=== PATIENT | male | born 1975 | race Asian ===

== ENCOUNTER 2016-11-14 20:44 | Emergency (ER) | payer OTHER ==
[2016-11-14 21:00] VITALS: O2SAT 96
--- NOTE | 2016-11-14 23:31 | EDPHY ---
H & P Time Seen by Provider: 11/14/16 22:03 HPI/ROS: CHIEF COMPLAINT: Head injury, scalp laceration HISTORY OF PRESENT ILLNESS: 40-year-old male presents to the emergency department by private vehicle complaining of diffuse headache after he sustained a head injury. The patient was playing indoor soccer and hit his head on the glass that surrounded field. He states that everything went white. He did not continue to play soccer. He complains of diffuse headache especially where he hit the back of his head. Denies neck or back pain. Denies chest pain or difficulty breathing. Denies abdominal trauma. He believes his tetanus shot is current. REVIEW OF SYSTEMS: Constitutional: No fever, no chills. Eyes: No double or blurry vision. ENT: No sore throat. Respiratory: No cough, no shortness of breath. Cardiac: No chest pain. Gastrointestinal: No abdominal pain, vomiting or diarrhea. Genitourinary: No dysuria. Musculoskeletal: No neck or back pain. Skin: scalp laceration Neurological: headache. Past Medical/Surgical History: Negative Social History: and lives in [place] Smoking Status: Never smoked Physical Exam: General Appearance: Alert, no distress. Mentating normally and answering questions appropriately. Eyes: Pupils equal and round. Extraocular motions are all intact. ENT: Mouth: Mucous membranes moist. No dental injury or malocclusion. Respiratory: No wheezing, rhonchi, or rales, lungs are clear to auscultation. Cardiovascular: Regular rate and rhythm. Gastrointestinal: Abdomen is soft and nontender, no masses, no rebound or guarding, bowel sounds normal. Neurological: Alert and oriented x 3, cranial nerves II through XII grossly intact Skin: 2 cm left posterior parietal scalp laceration. Diffusely tender. Large hematoma present. Warm and dry, no rashes. Musculoskeletal: Nontender to palpate along the cervical, thoracic or lumbar spine. Neck is supple. Extremities: Full range of motion and no peripheral edema. Psychiatric: Patient is oriented X 3, there is no agitation. Constitutional: Initial Vital Signs Temperature (C) 37.4 C 11/14/16 20:58 Heart Rate 93 11/14/16 20:58 Respiratory Rate 20 11/14/16 20:58 Blood Pressure 140/88 H 11/14/16 20:58 O2 Sat (%) 96 11/14/16 20:58 O2 Delivery Mode Room Air Allergies/Adverse Reactions: Penicillins Allergy (Unknown, Verified 11/14/16 20:58) Home Medications: Medication Instructions Recorded NK [No Known Home Meds] 11/14/16 Medical Decision Making - Diagnostics Imaging Results: Imaging Impressions Head CT 11/14/16 22:52 Impression: 1. No acute fracture or evidence of acute intracranial injury. 2. Left parietal scalp hematoma Findings discussed with Emergency Department physician medical laboratory assistant, BO MEJIA at 11/14/2016 23:22. Imaging: Discussed imaging studies w/ call center director Radiologist Procedures: Laceration repair. Verbal consent was obtained from the patient. The 2 cm laceration on the scalp was anesthetized using 1% lidocaine with epinephrine. The wound was irrigated with saline, draped and explored to its base with a gloved finger. There were no deep structures involved. The wound was repaired with 4 ramiro. The wound repair was simple. The procedure was performed by myself. ED Course/Re-evaluation: 40-year-old male presents emergency department with severe headache and large hematoma after sustaining head injury. The patient had loss of consciousness. He complains now of diffuse headache. I discussed the pros and cons of CT imaging of his brain including radiation exposure and the patient requests CT scan. I think this is indicated given his severe headache and his loss of consciousness. CT imaging is normal. Laceration was repaired, see procedure note. The patient was given closed-head injury precautions. He will return if he develops worsening headache, vomiting, altered mental status, or if he feels worse in any way. Differential Diagnosis: Head injury including but not limited to concussion, skull fracture, intraparenchymal contusion, subarachnoid, subdural and epidural hematoma. Departure - Departure Disposition: Home, Routine, Self-Care Clinical Impression: Scalp laceration Qualifiers: Encounter type: initial encounter Qualified Code(s): S01.01XA - Laceration without foreign body of scalp, initial encounter Head injury Qualifiers: Encounter type: initial encounter Qualified Code(s): S09.90XA - Unspecified injury of head, initial encounter Concussion Qualifiers: Encounter type: initial encounter Loss of consciousness presence/duration: with LOC of unspecified duration Qualified Code(s): S06.0X9A - Concussion with loss of consciousness of unspecified duration, initial encounter Condition: Good Instructions: Care For Your Stitches (ED), Laceration (ED), Acute Wounds (ED) Additional Instructions: Wound Care Follow-Up: Removal of sutures in 7 days. Suture removal is complimentary in uncomplicated cases. Infection or abnormal findings would require reevaluation by the MD. In that case, you may be billed. Return if you notice any signs or symptoms of infection such as redness, swelling, increased pain, fever, purulent drainage. Avoid any activity that might put you at risk for another head injury for at least 1 week. Return also if you developed worsening headache, vomiting, altered mental status, or if you feel worse in any way. Referrals: Usha Mclean MD [Medical Doctor] - 2-3 days, call for appt. (Primary care provider neon tube pumper)
[2016-11-14 23:47] VITALS: BP 133/81; PULSE 86; RESP 18; TEMP 99.1
== END 2016-11-14 23:47 | disposition home or self-care (01) ==
PROC: 0HQ0XZZ Repair Scalp Skin, External Approach (ICD-10-PCS; principal; 2016-11-14)
DX: S01.01XA Laceration without foreign body of scalp, initial encounter (principal); S06.0X9A Concussion with loss of consciousness of unspecified duration, initial encounter; W22.8XXA Striking against or struck by other objects, initial encounter; Y92.322 Soccer field as the place of occurrence of the external cause; Y93.66 Activity, soccer